=== PATIENT | male | born 1975 | race Caucasian/White ===

== ENCOUNTER 2022-03-10 20:18 | Emergency (ER) | payer BC ==
[2022-03-10] MEDS ORDERED: Lidocaine 1%/Epinephrine 1:100K 10 ML VIAL ONE (21:15)
[2022-03-10] MEDS ORDERED: Bacitracin 1 PK ONE (22:33)
== END 2022-03-10 22:42 | disposition home or self-care (01) ==
LOC: MADERS 20:18
DX: S71.111A Laceration without foreign body, right thigh, initial encounter (principal); R93.6 Abnormal findings on diagnostic imaging of limbs; W22.8XXA Striking against or struck by other objects, initial encounter
CPT/HCPCS: 96372